=== PATIENT | male | born 1975 | race Caucasian/White ===

== ENCOUNTER 2017-06-07 09:18 | Outpatient (RCR) | payer OTHER | END 2017-07-09 07:54 | disposition still patient (30) | LOC: WSOH 09:18 | DX: H15.101 Unspecified episcleritis, right eye (principal) ==

== ENCOUNTER → 2022-05-03 | Outpatient (CLI) | payer BC | LOC: COL.RAD 14:03 | DX: R53.1 Weakness (principal) | CPT/HCPCS: Q9967 ==